=== PATIENT | female | born 1950 | race Caucasian/White ===

== ENCOUNTER 2024-04-04 11:36 | Emergency (ER) | payer OTHER ==
[2024-04-04 11:55] VITALS: RESP 16; TEMP 98.1; BMI 17.6
[2024-04-04 13:21] LABS: BASO % 0.3 % (0-2.0); EOS % 0.1 % (0-4.5); HEMATOCRIT 39.2 % (32.4-45.2); HEMOGLOBIN 13.4 GM/dL (10.7-15.3); LYMPH % 5.6 % (8-40); MCH 32.7 pg (25.7-33.7); MCHC 34.1 g/dl (32.0-36.0); MEAN CELL VOLUME 95.9 fl (80-96); MEAN PLT VOLUME 8.5 fl (7.5-11.1); MONO % 6.6 % (3.8-10.2); NEUT % 87.4 % (42.8-82.8); PLATELET COUNT 141 10^3/uL (134-434); RBC 4.09 M/mm3 (3.60-5.2); RDW 12.8 % (11.6-15.6); WHITE BLOOD COUNT 6.4 K/mm3 (4.0-10.0)
[2024-04-04] MEDS ORDERED: ACETAMINOPHEN 325 MG TABLET (FP) ONE (13:22)
[2024-04-04] MEDS ORDERED: DIPHTH,PERTUSS(ACELL),TET 0.5 ML DISP.SYRIN IM ONE (13:22)
[2024-04-04 13:28] LABS: INR 1.05 (0.83-1.09); PROTHROMBIN TIME (PATIENT) 12.1 SEC (9.7-13.0)
[2024-04-04] MEDS: DIPHTH,PERTUSS(ACELL),TET 0.5 ML DISP.SYRIN IM ONE (13:29)
[2024-04-04 13:30] LABS: ACTIVATED PTT 28.6 SECONDS (25.2-36.5)
[2024-04-04] MEDS: SODIUM CHLORIDE 0.9% 500 ML INFUS.BAG IV ONE (13:30)
[2024-04-04 13:37] LABS: POTASSIUM 3.7 mmol/L (3.5-5.1)
[2024-04-04 13:40] LABS: CALCIUM 9.4 mg/dL (8.5-10.1)
[2024-04-04 13:44] LABS: CREATININE 0.7 mg/dL (0.55-1.3)
[2024-04-04 13:46] LABS: BILIRUBIN,TOTAL 0.6 mg/dL (0.2-1)
[2024-04-04] MEDS: ACETAMINOPHEN 500 MG TABLET (FP) PO ONE (13:52)
[2024-04-04 14:00] LABS: BLOOD UREA NITROGEN 16.5 mg/dL (7-18)
[2024-04-04 15:16] VITALS: BP 115/86; PULSE 119
[2024-04-04 15:18] LABS: HIV INTERPRETATION NEGATIVE (NEGATIVE)
== END 2024-04-04 15:54 | disposition home or self-care (01) ==
LOC: JER 11:36
PROC: 3E0234Z Introduction of Serum, Toxoid and Vaccine into Muscle, Percutaneous Approach (ICD-10-PCS; principal; 2024-04-04)
DX: R55 Syncope and collapse (principal); Z23 Encounter for immunization
CPT/HCPCS: 36415; 70450-TC; 70486-TC; 72125-TC; 80053; 84484; 85025; 85610; 85730; 86803; 86850; 86900; 86901; 87389; 90471; 90715; 93005; 93010; 99284-25